=== PATIENT | female | born 1990 ===

== ENCOUNTER 2017-01-10 16:22 | Inpatient (IN) ==
[2017-01-10] MEDS ORDERED: CALCIUM CARBONATE Chewable 500mg TABLET PO PRN (17:54)
[2017-01-10] MEDS ORDERED: SALINE FLUSH 10ml SYRINGE IV PRN (17:54)
[2017-01-10] MEDS ORDERED: ACETAMINOPHEN 500 MG TABLET PO PRN (17:54)
[2017-01-10] MEDS ORDERED: MAG-AL + SIM ORAL LIQUID 30ml PO PRN (17:54)
[2017-01-10] MEDS ORDERED: CARBOPROST 250 MCG/ML INJECTION IM PRN (17:54)
[2017-01-10] MEDS ORDERED: METHYLERGONOVINE 0.2 MG/ML INJECTION IM PRN (17:54)
--- OUTSIDE RECORDS SUMMARY | 2017-01-10 19:32 | External Medical Summary | Continuity of Care Document ---
:1990 Author Organization [facility] Address [address] [place], [place] [id number] Phone Allergies, Adverse Reactions, Alerts Substance Reaction Severity Status No Known Drug Allergies Unknown Active Medications Medication Instructions Dosage Effective Dates Status Comments (start - stop) Cradle - Active EACH Tylenol 325 mg tablet take 2 tablet by oral 650 MG - Active route every 6 hours as needed ORAL TABLET - Active Zyrtec 10 mg tablet take 1 tablet by oral 10 MG - Active route every day FOLIC ACID (unknown take 1 tablet by oral - Active strength) route every day Problems Condition Effective Dates (start - stop) Clinical Status Encntr for suprvsn of normal first - preg, third trimester 30 weeks gestation of - Encntr for suprvsn of normal first - preg, second trimester 24 weeks gestation of - Encntr for suprvsn of normal first - preg, third trimester 33 weeks gestation of - Encntr for suprvsn of normal first - preg, third trimester 28 weeks gestation of - Migraines Active Procedures Procedure Date OB Visit No Charge Results Test Name Date and Time Measure Units Reference Range Abnormal Flag Comments Unknown Advance Directives Directive Yes / No Effective Date File Name Unknown Encounters Encounter Practice Location Reason(s) Diagnoses Date Provider Care Team Description For Visit [facility] [place] [facility] Referring [facility] suprvsn of -2016 [place]. Provider: YOEL, [address] [place] [address], first preg, [place], [facility] 700 [facility] [id number], [address] tel: weeks [address], [address] gestation Sol, 120, [place], [address], [place]. [address]. tel: tel: [phone] [facility] for [facility] Referring [facility] [place]. Provider: COREY DIALLO [address] [place] [address], first preg, Medical [facility] L, [place], [place], third Center 700 Medical [id number], [place] [facility] [place] tel: weeks [address], [address] gestation [place], 120, [place], [address], [place]. [address]. tel: tel: [phone] [facility] [place] [facility] Referring [facility] [place]. Provider: COREY DIALLO [address] [place] [address], first preg, Medical [facility]bing L, [place], [place], third Center 700 [address] [id number], [place] [email or web address] [facility] [place] tel: weeks [address], [address] gestation [place], 120, [place], [address], [place]. [address]. tel: tel: [phone] [facility] [place] [facility] Referring [facility] [place]. Provider: COREY DIALLO [address] [place] [address], first preg, Medical [facility]bing L, [place], [place], second Center 700 [address] [id number], [place] [email or web address] [facility] [place] tel: weeks [address], [address] gestation Sol, 120, [place], [address], [place]. [address]. tel: tel: [phone] Family History Family Member Diagnosis Age At Onset Maternal Grandfather Cardiovascular Disease Paternal Grandfather Diabetes Maternal Grandmother Diabetes Paternal Grandmother Lupus Father Hypertension Immunizations Vaccine Date Status Comments Tdap completed Source: New Immunization Record Payers Payer name Insurance type Covered green party ID Authorization(s) RONEY JOY [id number] Social History Type Description Quantity Date Captured Alcohol Use Details No Caffeine Use Details Unknown Tobacco Use Status Unknown Smoking Status Never smoker Vital Signs Date / Height Weight BMI Pulse Blood Temperature Respiratory Body Head BMI Time: Rate Pressure Rate Surface Circumference percentile Area 184.10 32.1 126/81 2017 lbs 0 mm[Hg] 3:21 kg/m PM eter (2) Chief Complaint And Reason For Visit Unknown Chief Complaint And Reason For Visit Reason For Referral Reason For Referral Unknown Plan Of Care Date Type Action Status Appointment Hellen Walker BOOKED Date Type Problem Goal Intervention Status Start Date Unknown. History Of Present Illness Encounter Date Complaint History Of Present Illness This patient has no known history of present illness Functional Status Encounter Date Functional Assessment Cognitive Assessment Unknown Medications Administered Medication Instructions Dosage Effective Dates (start - stop) Status Comments Drug Treatment Unknown Instructions Date Instruction Additional Information signs and symptoms of labor abnormal lab values influenza vaccine selecting a care provider smoking counseling domestic violence family planning / tubal sterilization gestational glucose lab screening screening complete obstetrical ultrasound hospital registration TdaP vaccine placing baby to sleep on back placing baby to sleep in a crib, bassinet, or portable crib baby sleep environment includes a firm mattress and fitted sheet removing blankets, pillows, bumper pads, stuffed toys from baby sleep env.
--- OUTSIDE RECORDS SUMMARY | 2017-01-10 19:34 | External Medical Summary | Continuity of Care Document ---
:1990 Author Organization [facility] YOEL Address [address] [place], [place] [id number] Phone Allergies, Adverse Reactions, Alerts Substance Reaction Severity Status No Known Drug Allergies Unknown Active Medications Medication Instructions Dosage Effective Dates Status Comments (start - stop) Cradle - Active EACH ORAL TABLET - Active Zyrtec 10 mg tablet take 1 tablet by oral 10 MG - Active route every day FOLIC ACID (unknown take 1 tablet by oral - Active strength) route every day Tylenol 325 mg tablet take 2 tablet by oral 650 MG - Active route every 6 hours as needed Problems Condition Effective Dates (start - stop) [...] of normal first - preg, third trimester 35 weeks gestation of - Encntr for suprvsn [...] Care Team Description For Visit Members [facility] Referring [facility] suprvsn of -2016 [place]. Provider: [place], [address] [place] [address], first preg, Medical [facility]bing L, [place], [place], third Center 700 [address] [id number], [place] [email or web address], Center tel:+ weeks [address], [address] gestation [place], 120, [place], [address], [place]. [address]. tel: tel: [phone] [facility] Referring [facility] [place]. Provider: COREY DIALLO [address] [place] [address], first preg, Medical [place]bing L, [place], [place], third Center 700 Medical [id number], [place] [email or web address], Center tel:+ weeks [address], [address] gestation [place], 120, [place], [address], [place]. [address]. tel: tel: [phone] [facility] [place] [facility] Referring [facility] [place]. Provider: COREY DIALLO [address] [place] [address], first preg, Medical [facility]bing L, [place], third Center 700 Medical [id number], [place] [email or web address], Center tel: weeks [address], [address] gestation Sol, 120, [place], [address], [place], [place]. [address]. tel: tel: [phone] [facility] [place] [facility] Referring [facility] [place]. Provider: COREY DIALLO [address] [place] [address], first preg, Medical [facility]bing L, [place], third Center 700 [address] [id number], [place] [email or web address], Center tel: weeks [address], [address] gestation Sol, 120, [place], [address], [place], [place]. [address]. tel: tel: [phone] [facility] [place] [facility] Referring [facility] [place]. Provider: COREY DIALLO [address] [place] [address], first preg, Medical [facility]bing L, [place], second Center 700 [address] [id number], [place] [email or web address], [place] tel:-[phone] weeks [address], [address] gestation [place], 120, [place], [address], [place]. [address]. tel: tel: [phone] Family History Family Member Diagnosis Age At Onset Maternal Grandfather Cardiovascular Disease Paternal Grandfather Diabetes Maternal Grandmother Diabetes Paternal Grandmother Lupus Father Hypertension Immunizations Vaccine Date Status Comments Influenza, injectable, completed Source: New Immunization Record quadrivalent, preservative free, 3 yrs or older Tdap completed Source: New Immunization Record Payers Payer name Insurance type Covered libertarian ID Authorization(s) [facility] [id number] [facility] [id number] Social History Type Description Quantity Date Captured Alcohol Use Details No Caffeine Use Details Unknown Tobacco Use Status Unknown Smoking Status Never smoker Vital Signs Date / Height Weight BMI Pulse Blood Temperature Respiratory Body Head BMI Time: Rate Pressure Rate Surface Circumference percentile Area 190.40 33.2 131/ lbs 0 mm[Hg] 3:23 kg/m PM eter (2) Chief Complaint And [...]
--- OUTSIDE RECORDS SUMMARY | 2017-01-10 19:34 | External Medical Summary | Continuity of Care Document ---
:1990 Author Organization [facility] Address [address] [place], [place] [id number] Phone Allergies, Adverse Reactions, Alerts Substance Reaction Severity Status Substance Type Unknown Medications Medication Instructions Dosage Effective Dates (start - stop) Status Comments Drug Treatment Unknown Problems Condition Effective Dates (start - stop) Clinical Status No Known Problems Procedures Procedure Date Unknown Results Test Name Date and Time Measure Units Reference Range Abnormal Flag Comments Unknown Advance Directives Directive Yes / No Effective Date File Name Unknown Encounters Encounter Practice Location Reason(s) Diagnoses Date Provider Care Team Description For Visit Members [facility] [place] [address] Mar[address]n. DIALLO, [address], [place], [facility] 120, [id number], [place], tel:[phone], 6790 . tel:[phone] Family History Family Member Diagnosis Age At Onset Unknown Immunizations Vaccine Date Status Comments Unknown Payers Payer name Insurance type Covered alliance party ID Authorization(s) Unknown Social History Type Description Quantity Date Captured Unknown Vital Signs Date / Height Weight BMI Pulse Blood Temperature Respiratory Body Head BMI Time: Rate Pressure Rate Surface Circumference percentile Area Unknown Chief Complaint And Reason For Visit Unknown [...] Treatment Unknown Instructions Date Instruction Additional Information Unknown
--- OUTSIDE RECORDS SUMMARY | 2017-01-10 19:34 | External Medical Summary | Continuity of Care Document ---
:1990 Author Organization [facility] Address [address] [place], [place] [phone] Phone Allergies, Adverse Reactions, Alerts Substance Reaction Severity Status No Known Drug Allergies Unknown Active Medications Medication Instructions Dosage Effective Dates Status Comments (start - stop) ORAL TABLET - Active Zyrtec 10 mg [...] third trimester 28 weeks gestation of - Encntr for suprvsn of normal first - preg, second trimester 24 weeks gestation of - Encntr for suprvsn of normal first - preg, third trimester 30 weeks gestation of - Migraines Active Procedures Procedure Date Immuniz admnin, 1 vac, sngl/combo 19 Yrs + TDAP VACCINE >7 IM OB Visit No Charge Hemoglobin count, colorimetric Hematocrit blood count Glucose test Venpnctr fngr/heel/ear stick routne Results Test Name Date and Time Measure Units Reference Range Abnormal Flag Comments Panel Description: Glucose [Mass/volume] in Serum or Plasma --1 hour post 50 g glucose PO GLUCOSE, 107 mg/dL <140 N Test performed at [facility] 16:00:00 DI[facility]NOST[facility] [id number] ([id number] [place] [address]Mixwflih: NANNETTE ZARAGOZA DO,MPH Panel Description: HEMOGLOBIN + HEMATOCRIT HEMOGLOBIN 16:00:00 10.7 g/dL 11.7-15.5 L HEMATOCRIT 16:00:00 30.5 % 35.0-45.0 L REPORT COMMENT:FASTING :NOTest performed at [facility] [id number] [place] [address]Yywblzhv: NANNETTE ZARAGOZA DO,MPH Advance Directives Directive Yes / No Effective Date File Name Unknown Encounters Encounter Practice Location Reason(s) Diagnoses Date Provider Care Team Description For Visit [facility] Referring [facility] [place]. Provider: COREY DIALLO [address] [place] [address], first preg, Medical Sobbing L, [place], [place], third Center 700 [facility] [id number], [place] [email or web address] [facility] [place] tel: weeks [address], [address] gestation [place], 120, [place], [address], [place]. [address]. tel: tel: [phone] [facility] Referring [facility] [place]. Provider: COREY DIALLO [address] [place] [address], first preg, Medical Sobbing L, [place], [place], third Center 700 [facility] [id number], [place] [email or web address] [facility] [place] tel: weeks [address], [address] gestation Sol, 120, [place], [address], [place], [place]. [address]. tel: tel: [phone] [facility] [place] [facility] for [facility] Referring [facility] [place]. Provider: COREY DIALLO [address] [place] [address], first preg, Medical Sobbing L, [place], [place], second Center 700 [address] [id number], [place] [email or web address] [facility] [place] tel: weeks [address], [address] gestation Sol, 120, [place], [address], [place], [place]. [address]. tel: tel:[phone] Family History Family Member Diagnosis Age At Onset Maternal Grandfather Cardiovascular Disease Paternal Grandfather Diabetes Maternal Grandmother Diabetes Paternal Grandmother Lupus Father Hypertension Immunizations Vaccine Date Status Comments Tdap completed Source: New Immunization Record Payers Payer name Insurance type Covered alliance party ID Authorization(s) Unknown Social History Type Description Quantity Date Captured Alcohol Use Details No Caffeine Use Details Unknown Tobacco Use Status Unknown Smoking Status Never smoker Vital Signs Date / Height Weight BMI Pulse Blood Temperature Respiratory Body Head BMI Time: Rate Pressure Rate Surface Circumference percentile Area 181.80 31.7 115/ lbs 0 mm[Hg] 3:28 kg/m PM eter (2) Chief Complaint And [...]
--- OUTSIDE RECORDS SUMMARY | 2017-01-10 19:37 | External Medical Summary | Continuity of Care Document ---
:1991 Author Organization [facility] Address [address] [place], [place] [phone] Phone Allergies, Adverse Reactions, Alerts Substance Reaction [...] second trimester 24 weeks gestation of - Migraines Active Procedures Procedure Date Initial OB Visit No Charge Results Test Name Date and Time Measure Units Reference Range Abnormal Flag Comments Unknown Advance Directives Directive Yes / No Effective Date File Name Unknown Encounters Encounter Practice Location Reason(s) Diagnoses Date Provider Care Team Description For Visit Members [facility] [place] [facility] Referring [facility] suprvsn of -2017 [place]. Provider: YOEL, [address] [place] [address], first preg, Medical Sobbing L, [place], [place], second Center [address] [id number], [place] [email or web address], [place] tel:[phone] weeks [address], [address] gestation Sol, 120, [facility], [address], [place]. [address]. tel:294 [phone] Family History Family Member Diagnosis Age At Onset Maternal Grandfather Cardiovascular Disease Paternal Grandfather Diabetes Maternal Grandmother Diabetes Paternal Grandmother Lupus Father Hypertension Immunizations Vaccine Date Status Comments Unknown Payers Payer name Insurance type Covered republican ID Authorization(s) BS [place] JOY [id number] Social History Type Description Quantity Date Captured Alcohol Use Details No Caffeine Use Details Tobacco Use Status Never smoked tobacco Smoking Status Never smoker Non-Smoking Tobacco Use : No Details Available : No Details Available Details Vital Signs Date / Height Weight BMI Pulse Blood Temperature Respiratory Body Head BMI Time: Rate Pressure Rate Surface Circumference percentile Area 174.00 30.3 113/74 2017 lbs 4 mm[Hg] 1:59 kg/m PM eter (2) Chief Complaint And [...]
--- NOTE | 2017-01-10 21:22 | OB/GYN Progress Note ---
- Pelvic Exam Dilation (cm): 1 Effacement (%): 40 station: -3 Amniotic membrane status: Intact - Contractions Monitor mode: External Contraction pattern: Irregular Contraction intensity: Mild - Status status: Category l - Assessment and Plan Assessment: induction ongoing Plan: continuous present management Comments: IOL for preeclampsia with out severe features. Labs reviewed, Dangling BPs all mild. Discussed Indications for induction of labor. Discussed R/B/A. Questions elicited and answered. SO present for conversation.
[2017-01-10] MEDS ORDERED: DiphenhydrAMINE 25 MG CAPSULE PO PRN (22:01)
[2017-01-10 22:34] VITALS: BMI 34.8
[2017-01-11] MEDS ORDERED: AMPICILLIN 2 GM in NS 100 ML IV ONE (05:00)
[2017-01-11] MEDS ORDERED: OXYTOCIN DRIP 30 UNIT/500 ML ML IV PRN (05:00)
[2017-01-11] MEDS: LR 1,000 ML IV PRN ×3 (05:13→16:53)
[2017-01-11] MEDS: D5LR 1,000 ML IV PRN ×2 (05:14→16:53)
--- NOTE | 2017-01-11 08:22 | Anesthesia Preoperative Report ---
Anesthesia Epidural/Spinal Rec - Date and Time Date: 01/11/17 Preoperative Diagnosis: 38wk HTN Procedure: Labor Epidural Plan: Epidural - Vital Signs /Para: P:0 - Medictaions & Allergies Inpatient Medications: Current Medications Acetaminophen (Tylenol) 500 - 1,000 mg PO Q4H PRN PRN Reason: Pain Last Admin: 01/10/17 22:12 Dose: 1,000 mg Al Hydroxide/Mg Hydroxide (Maalox Plus) 30 ml PO Q3H PRN PRN Reason: Indigestion Calcium Carbonate (Tums) 500 - 1,000 mg PO Q2H PRN PRN Reason: Indigestion Carboprost Tromethamine (Hemabate) 250 mcg IM O PRN PRN Reason: .Downtime Diphenhydramine HCl (Benadryl) 25 - 50 mg PO HS PRN PRN Reason: Itching Last Admin: 01/10/17 22:12 Dose: 50 mg Lactated Ringer's (Lactated Ringers) 1,000 mls @ 999 mls/hr IV .Q1H1M PRN Last Admin: 01/11/17 05:13 Dose: 999 mls/hr Ampicillin Sodium 1 gm/ Sodium (Chloride) 100 mls @ 200 mls/hr IV Q4H YASEMIN Oxytocin (Pitocin Drip) 30 unit in 500 mls @ 2 mls/hr IV .Q24H PRN; Protocol PRN Reason: Induction/Augmentation Last Admin: 01/11/17 05:13 Dose: 2 mls/hr Dextrose/Lactated Ringer's (Dextrose 5%-Lactated Ringers) 1,000 mls @ 125 mls/ hr IV .Q8H PRN PRN Reason: Labor Last Admin: 01/11/17 05:14 Dose: 125 mls/hr Methylergonovine Maleate (Methergine) 0.2 mg IM O PRN Misoprostol (Cytotec) 800 mcg [place] ONCE PRN Sodium Chloride (Iv Flush) 10 - 80 ml IV PRN PRN PRN Reason: Flushing Allergies/Adverse Reactions: Allergies Allergy/AdvReac Type Severity Reaction Status Date / Time No Known Allergies Allergy Verified 01/10/17 16:48 - Home Medications Home Medications: Home Medications Medication Instructions Recorded Confirmed Type Acetaminophen [Tylenol] 01/10/17 History Cetirizine HCl [Zyrtec] 1 tab PO DAILY 01/10/17 01/10/17 History Famotidine [Pepcid] 1 tab PO DAILY 01/10/17 01/10/17 History Folic Acid 01/10/17 History Prenat 115/Iron Fum/Folic/Dss 1 each PO 01/10/17 History [ 19 Tablet] - Surgical History Anesthesia Reactions: None Hx Family Anesthesia Reaction: No History of Motion Sickness: No - Social History Smoking Status: Never smoker Second Hand Exposure: No Substance Use Type: does not use Alcohol Intake Frequency: does not drink Hx Chewing Tobacco Use: No - Pertinent Findings Lab Data: CBC and BMP 01/10/17 17:07 01/10/17 17:07 BMP 01/10/17 17:07 Sodium 137 Potassium 4.0 Chloride 107 Carbon Dioxide 21 L BUN 9.0 Creatinine 0.7 Glucose 79 Calcium 8.9 Liver Function 01/10/17 Range/Units 17:07 Total Bilirubin < 0.10 L (0.20-1.30) MG/DL AST 32 (14-36) U/L ALT 43 (9-52) U/L Alkaline Phosphatase 222 H (38-126) U/L Albumin 3.9 (3.5-5.0) G/DL EKG Rhythm: Normal Sinus Rhythm - Physical Exam Respiratory Exam: lungs clear Cardiovascular Exam: regular rate and rhythm, no murmur - Airway Assessment Mallampati Score: I TMD: 3 Fingerbreadths Neck Extension: good Overall Assessment: no airway concerns - ASA ASA Score: 2 - Discussion Discussion: Discussed risks/options/alternatives of anesthesia and questions answered. Patient consents. Nursing pain assessment noted. Attestation Statement: Prior to the delivery of any anesthetic medication, I examined the patient, developed the plan, obtained the patient's consent and discussed the risk and benefits of the procedure with the patient/guardian.
[2017-01-11] MEDS: AMPICILLIN 1 GM in NS 100 ML IV SCH ×3 (09:06→17:28)
--- NOTE | 2017-01-11 09:20 | OB/GYN Progress Note ---
- Pain Control Pain control: Tolerating well Comments: Request Epidural - Pelvic Exam Dilation (cm): 4 Effacement (%): 60 station: -3 Amniotic membrane status: Intact Comments: AROM clear fluid moderate amount. - Contractions Monitor mode: External Contraction pattern: Regular Contraction intensity: Strong/Firm - Status status: Category l - Assessment and Plan Pitocin rate (mU/min): 20 Assessment: induction ongoing Plan: continuous present management (Anesthesia for epidural)
--- NOTE | 2017-01-11 12:02 | OB/GYN Progress Note ---
- Pain Control Pain control: Tolerating well, Epidural - Pelvic Exam Dilation (cm): 5 Effacement (%): 80 station: -2 Amniotic membrane status: Ruptured Comments: Anterior cervix. Good cervical change - Contractions Monitor mode: External Contraction pattern: Regular Contraction intensity: Strong/Firm - Status status: Category l Comments: Early decels. - Assessment and Plan Assessment: induction ongoing Plan: continuous present management (Expect vaginal delivery. )
--- NOTE | 2017-01-11 13:00 | OB/GYN Progress Note ---
- Pain Control Pain control: Tolerating well, Epidural - Pelvic Exam Dilation (cm): 6 Effacement (%): 90 station: -2 Amniotic membrane status: Ruptured - Contractions Monitor mode: External Contraction pattern: Regular Contraction intensity: Strong/Firm - Status status: Category ll (Had a few Late decelerations, Resolved good variability with acceleration) - Assessment and Plan Assessment: induction ongoing Plan: continuous present management (Pitocin rate decreased to 10 units, 500cc bolous. Will continue induction)
[2017-01-11] MEDS ORDERED: SUFentanil 50 MCG, ROPIVACAINE 0.2% 2MG/ML INJ 40 MG in NS 100 ML IVP ONE (14:23)
--- NOTE | 2017-01-11 17:55 | OB/GYN Progress Note ---
- Pain Control Pain control: Tolerating well, Epidural - Pelvic Exam Dilation (cm): 8 Effacement (%): 100 station: 0 Amniotic membrane status: Ruptured - Contractions Monitor mode: Internal Contraction pattern: Regular Contraction intensity: Strong/Firm - Status status: Category l (Had a few Late decelerations, Resolved good variability with acceleration) - Assessment and Plan Assessment: induction ongoing Plan: continuous present management (Pitocin at 18 continue current management. )
--- NOTE | 2017-01-11 23:09 | OB/GYN Procedure Note ---
Delivery date: 01/11/17 Events: Pre-Eclampsia (without severe features) Intrapartal events: Mild Preeclampsia Induction method: per pitocin protocol Delivery augmentation: rupture of membranes Delivery monitor: internal FHT Route of delivery: Episiotomy description: None Laceration description: Perineal - 1st Degree (BL) Delivery repair: vicryl Anesthesia type: Epidural Disposition: floor - Baby 1 presentation: Vertex Placenta delivery description: Spontaneous cord vessel description: 3 Vessels at 1 minute: 8 at 5 minutes: 9
[2017-01-11] MEDS ORDERED: DiphenhydrAMINE 25 MG CAPSULE PO PRN (23:27)
[2017-01-11] MEDS ORDERED: CALCIUM CARBONATE Chewable 500mg TABLET PO PRN (23:27)
[2017-01-11] MEDS ORDERED: ACETAMINOPHEN 500 MG TABLET PO PRN (23:27)
[2017-01-11] MEDS ORDERED: Oxycodone/Acetaminophen 5/325 1 TAB PO PRN (23:27)
[2017-01-11] MEDS ORDERED: HYDROCORTISONE 2.5% CREAM 30gm RECTALLY PRN (23:27)
[2017-01-11] MEDS ORDERED: MAG-AL + SIM ORAL LIQUID 30ml PO PRN (23:27)
[2017-01-12] MEDS: IBUPROFEN 800 MG TABLET PO PRN ×3 (01:10→16:03)
[2017-01-12] MEDS: AMPICILLIN 1 GM in NS 100 ML IV SCH (02:00)
--- NOTE | 2017-01-12 08:04 | OB/GYN Progress Note ---
OB-PP Progress Note - General PPD1 Maternal Group B Strep: Positive Maternal blood type: A+ Maternal Rubella Status: Immune - Subjective Date: 01/12/17 Lochia: Minimal Pain: controlled Voiding: voiding Nausea or Vomiting Present: No - Objective Vital Signs: Last Vital Signs Temp 99.1 F 01/12/17 01:00 Pulse 85 01/12/17 02:42 Resp 16 01/12/17 02:42 BP 122/70 01/12/17 02:42 Pulse Ox 98 01/12/17 02:42 General: alert and oriented Abdomen: fundus firm, non-tender Extremities: non-tender Side: bilateral Site: leg Edema Degree: 1+ Laboratory: Laboratory Results - last 24 hr 01/11/17 01/11/17 19:14 19:14 WBC 14.9 H D RBC 3.77 L Hgb 10.6 L Hct 32.7 L MCV 86.7 MCH 28.1 MCHC 32.4 RDW Std Deviation 44.4 Plt Count 194 MPV 11.2 Immature Gran % (Auto) Not performed Neut % (Auto) Not performed Lymph % (Auto) Not performed [place] % (Auto) Not performed Eos % (Auto) Not performed Baso % (Auto) Not performed Neut # (Auto) Not performed Lymph # (Auto) Not performed [place] # (Auto) Not performed Eos # (Auto) Not performed Baso # (Auto) Not performed Abs Immat Gran (auto) Not performed Neutrophils % (Manual) 88.0 H Lymphocytes % (Manual) 6.0 L Monocytes % (Manual) 5.0 Eosinophils % (Manual) 1.0 Neutrophils # (Manual) 13.1 H Lymphocytes # (Manual) 0.9 L Abs React Lymphs (Man) 0.7 H Monocytes # (Manual) 0.7 Eosinophils # (Manual) 0.1 RBC Morph Comment Normal Turbidity < 20 Sodium 136 Potassium 3.9 Chloride 108 H Carbon Dioxide 20 L Anion Gap 8 BUN 7.0 Creatinine 0.7 GFR Calculation 102 BUN/Creatinine Ratio 10 Glucose 91 Calculated Osmolality 260 L Calcium 8.3 L Total Bilirubin 0.30 Icterus Index < 2 AST 25 ALT 32 Alkaline Phosphatase 194 H Total Protein 6.2 L Albumin 3.0 L Globulin 3.2 Albumin/Globulin Ratio 0.9 L Specimen Hemolysis < 15 - Assessment Assessment: SP, , Preeclampsia - Plan Plan: routine care
[2017-01-12] MEDS: DOCUSATE CALCIUM 240 MG CAPSULE PO SCH (08:21)
[2017-01-12] MEDS: PRENATAL VITAMIN TABLET PO SCH (08:21)
--- NOTE | 2017-01-12 15:08 | Anesthesia Postoperative Note ---
- Date and Time Date: 01/12/17 Time: 15:07 - Status Patient Participated in Evaluation: Patient Participated in Person Vital Signs: Temperature 97.8 F 01/12/17 12:00 Pulse Rate 69 01/12/17 12:00 Respiratory Rate 14 01/12/17 12:00 Blood Pressure 123/89 01/12/17 12:00 Pulse Oximetry 100 01/12/17 12:00 Respiratory Function: Airway Patent Cardiovascular Function: Regular Pulse Mental Status: Alert and Oriented Pain Intensity: 2 Hydration: Taking PO Fluids Complications During Recover: None Apparent Post Anesthesia Care Notes: full motor and sensation has returned - Follow-Up Instructions Instructions: Per Surgeon
--- NOTE | 2017-01-12 16:29 | Labor and Delivery Note ---
DATE OF DELIVERY: 01/11/2017 DELIVERY NOTE Normal spontaneous vaginal delivery of a live male infant named Gabriel in the OA position over intact perineum with epidural anesthesia. Thick meconium was noted at time of delivery and DeLee suction was performed. No nuchal cord. There was spontaneous delivery of the placenta with a 3-vessel cord. There were bilateral periurethral first-degree lacerations that were repaired with 3- 0 chromic and a first-degree perineal laceration that was repaired with 2-0 Vicryl. Estimated blood loss was approximately 200 ml. Apgars of the infant were 8/9/9 and weight was 6 pounds 15 ounces or 3,155 grams. MTDD
[2017-01-13] MEDS: IBUPROFEN 800 MG TABLET PO PRN (00:33)
[2017-01-13 08:28] VITALS: RESP 16; O2SAT 98
--- NOTE | 2017-01-13 09:07 | OB/GYN Progress Note ---
OB-PP Progress Note - General PPD2 Maternal Group B Strep: Positive Maternal blood type: A+ Maternal Rubella Status: Immune - Subjective Date: 01/13/17 Lochia: Minimal Pain: controlled Voiding: voiding Nausea or Vomiting Present: No - Objective Vital Signs: Last Vital Signs Temp 97.7 F 01/13/17 08:00 Pulse 74 01/13/17 08:00 Resp 16 01/13/17 08:00 BP 140/92 H 01/13/17 08:00 Pulse Ox 98 01/13/17 08:00 General: alert and oriented Respiratory: non-labored Abdomen: fundus firm Extremities: non-tender Side: bilateral Site: ankle Edema Degree: 1+ - Assessment Assessment: SP - Plan Plan: routine care, discharge home
[2017-01-13] MEDS: DOCUSATE CALCIUM 240 MG CAPSULE PO SCH (09:18)
[2017-01-13] MEDS: PRENATAL VITAMIN TABLET PO SCH (09:18)
[2017-01-13 14:43] VITALS: BP 128/83; PULSE 79; TEMP 98.2
== END 2017-01-13 14:58 | disposition home or self-care (01) | DRG 775 ==
LOC: OBOBS 16:22 → MC 16:23
PROVIDERS: ADMIT Obstetrics & Gynecology; ATTEND Obstetrics & Gynecology